=== PATIENT | male | born 1950 | race Caucasian/White ===

== ENCOUNTER → 2020-10-13 | Outpatient (CLI) | payer MEDICARE ==
[~2020-10-13] MED LIST: EZET1TAB21 PO; GLUC1CAP9 PO; IOHEXOL-350 50ML VIAL IV ONE; LISI-613 PO; METF-446 PO; MULT-264 PO; NAPR250T4 PO; PIOG30TA70 PO; TYL3 PO; UBID100C10 PO
== END | disposition home or self-care (01) ==
LOC: RAH 08:05
PROVIDERS: ATTEND Internal Medicine
DX: N13.2 Hydronephrosis with renal and ureteral calculous obstruction (principal); R10.2 Pelvic and perineal pain
CPT/HCPCS: 74177; Q9967

== ENCOUNTER 2020-11-17 07:02 | Day surgery (SDC) | payer MEDICARE ==
[2020-11-11 13:40] LABS: BASOPHILS % (AUTO) 0.9 % (0.0-5.0); HEMATOCRIT 40.5 % (42-54); LYMPHOCYTES % (AUTO) 29.3 % (21.0-51.0); MEAN CORPUSCULAR HEMOGLOBIN 29.1 pg (27.0-33.0); MEAN CORPUSCULAR HGB CONC 31.4 g/dL (32.0-36.0); MEAN CORPUSCULAR VOLUME 92.9 fL (79-99); MONOCYTES % (AUTO) 5.8 % (3.0-13.0); NEUTROPHILS % (AUTO) 58.8 % (40.0-77.0); PLATELET COUNT (AUTO) 267 K/uL (130-400); RED BLOOD CELL COUNT(AUTO) 4.36 MIL/uL (4.50-6.20); RED CELL DISTRIBUTION WIDTH 12.9 % (11.0-15.5); WHITE BLOOD COUNT (AUTO) 6.4 K/uL (4.8-10.8)
[2020-11-11 13:57] LABS: CREATININE 1.5 mg/dL (0.5-1.5); INR 1.04 (0.85-1.15); POTASSIUM 4.8 mmol/L (3.5-5.1); PROTHROMBIN TIME 11.1 SEC (9.6-11.6)
[2020-11-11 13:59] LABS: PARTIAL THROMBOPLASTIN TIME 25.2 SEC (26.3-35.5)
[2020-11-11 14:32] LABS: APPEARANCE,URINE CLEAR (CLEAR); BILIRUBIN,URINE NEGATIVE (NEGATIVE); COLOR,URINE YELLOW (YELLOW); GLUCOSE, URINE (UA) NEGATIVE (NEGATIVE); KETONES,URINE NEGATIVE (NEGATIVE); LEUKOCYTE ESTERASE ,URINE NEGATIVE (NEGATIVE); NITRATE,URINE NEGATIVE (NEGATIVE); OCCULT BLOOD,URINE TRACE-INTACT (NEGATIVE); PH,URINE 5.5 (5.0-8.0); PROTEIN,URINE NEGATIVE (NEGATIVE); UROBILINOGEN,URINE 0.2 mg/dL (0.2-1.0)
[2020-11-11 14:37] LABS: BACTERIA,URINE Few /HPF (None Seen)
[2020-11-11 14:38] LABS: MUCUS,URINE Few LPF (None Seen); SQUAMOUS EPITHELIAL CELL,UR Few /HPF (0-2)
[2020-11-15 13:14] VITALS: BP 155/83
[2020-11-17] VITALS (14 sets, daily range): BP systolic 100–136; BP diastolic 55–76
[~2020-11-17] VITALS: Ht 180.3 cm; Wt 93.9 kg
[~2020-11-17 07:02] MED LIST changes: +AEC81 PO; +EZET1TAB17 PO; -EZET1TAB21 PO; -IOHEXOL-350 50ML VIAL IV ONE; -LISI-613 PO; +LISI10TA24 PO; -METF-446 PO; -NAPR250T4 PO; -PIOG30TA70 PO; -TYL3 PO; +TYLENOL ARTHRITIS PO; -UBID100C10 PO; +VITAMIN C PO; +VITAMIN D12 PO; +ZINC50TA15 PO
[2020-11-17] MEDS ORDERED: LACTATED RINGERS 1000ML 1,000 ML IV ONE (07:21)
[2020-11-17] MEDS ORDERED: SUCCINYLCHOLINE 200MG/10ML SYR ONE (07:42)
[2020-11-17] MEDS ORDERED: LIDOCAINE PF 100MG/5ML (2%) SYRINGE 5ML ONE (07:42)
[2020-11-17] MEDS ORDERED: DEXAMETHASONE SOD PHOSPHATE 10MG/ML 1ML VIAL ONE (07:42)
[2020-11-17] MEDS ORDERED: MIDAZOLAM HCL 1 MG/ML 2ML VIAL ONE (07:43)
[2020-11-17] MEDS ORDERED: PROPOFOL 10 MG/ML 20ML VIAL IV ONE (07:43)
[2020-11-17] MEDS ORDERED: NEOSTIGMINE 5MG/5ML SYR IV ONE (07:43)
[2020-11-17] MEDS ORDERED: GLYCOPYRROLATE 1 MG/5 ML SYRINGE ONE (07:43)
[2020-11-17] MEDS ORDERED: ROCURONIUM 10MG/1ML SYR 10 MG/ML ML ONE (07:44)
[2020-11-17] MEDS ORDERED: ONDANSETRON 4MG INJ ONE (07:44)
[2020-11-17] MEDS ORDERED: FENTANYL CITRATE PF 50 MCG/1 ML 2ML VIAL ONE (07:44)
[2020-11-17] MEDS ORDERED: IOHEXOL-350 50ML VIAL IV ONE (07:57)
[2020-11-17] MEDS ORDERED: GENTAMICIN 80 MG/NS 100 ML PB 100 ML IV PRN (08:00)
[2020-11-17] MEDS: CEFTRIAXONE 1G VIAL IVP PRN ×2 (08:05→08:55)
[2020-11-17] MEDS ORDERED: EPHEDRINE SULFATE 50 MG/ML AMPULE ONE (09:29)
== END 2020-11-17 11:50 | disposition home or self-care (01) ==
LOC: DAH 07:02
PROVIDERS: ATTEND Urology
DX: N20.1 Calculus of ureter (principal); Z20.822 Contact with and (suspected) exposure to COVID-19; I10 Essential (primary) hypertension; E66.9 Obesity, unspecified; E11.9 Type 2 diabetes mellitus without complications; M19.90 Unspecified osteoarthritis, unspecified site; Z79.01 Long term (current) use of anticoagulants; Z88.2 Allergy status to sulfonamides
CPT/HCPCS: 36415 ×2; 52356; 71045; 74018 ×2; 80048; 81001; 82360; 85025; 85610; 85730; 87088; 93005; A4215; A4221; A4222; A4223; A4600; A4663; A6260; C9803; J0330; J0696; J1100; J1580; J2001; J2250; J2405; J2704; J2710; J3010; J3490 ×2; J7120; U0003; C1758; C1769; C2617; Q9967

== ENCOUNTER → 2021-01-19 | Outpatient (CLI) | payer MEDICARE | END | disposition home or self-care (01) | LOC: RAH 09:01 | PROVIDERS: ATTEND Internal Medicine Cardiovascular Disease | DX: R42 Dizziness and giddiness (principal); I95.1 Orthostatic hypotension | CPT/HCPCS: 93306; 93356; 93880; 96374; C8929 ==

== ENCOUNTER 2025-03-26 19:18 | Emergency (ER) | payer MEDICARE ==
[~2025-03-26] VITALS: Ht 180.3 cm; Wt 77.1 kg
[~2025-03-26 19:18] MED LIST changes: +EZET-80 PO; -EZET1TAB17 PO
--- NOTE | 2025-03-26 19:59 | EKG ---
[facility] Test Date: 2025-03-26 Test Time: 19:56:41 Pat Name: JACY HULL Department: ED Room: Gender: M Physiological Chemist: [id number] : 1950 Requested By: BRIDGETTE LORA Order Number: [id number] Reading MD: Josr Hernandez Measurements Intervals [place] Rate: 69 P: 60 IA: 174 QRS: 2 QRSD: 105 T: 28 QT: 392 QTc: 419 Interpretive Statements Sinus rhythm Probable anteroseptal infarct, old Compared to ECG 11/11/2020 13:15:45 Myocardial infarct finding now present Electronically Signed On 03-29-2025 22:14:00 CDT by Josr Hernandez Please click the below link to view image of tracing.
[2025-03-26 21:06] LABS: BASOPHILS # (AUTO) 0.04 K/uL (0.00-0.20); BASOPHILS % (AUTO) 0.7 % (0.0-5.0); EOSINOPHILS # (AUTO) 0.11 K/uL (0.00-0.70); IMMATURE GRANULOCYTE ABSOLUTE 0.01 K/uL (0-1); LYMPHOCYTES # (AUTO) 1.4 K/uL (1.0-4.8); LYMPHOCYTES % (AUTO) 25.8 % (21.0-51.0); MEAN CORPUSCULAR HEMOGLOBIN 31.5 pg (27.0-33.0); MEAN CORPUSCULAR HGB CONC 33.2 g/dL (32.0-36.0); MEAN CORPUSCULAR VOLUME 94.6 fL (79-99); MONOCYTES # (AUTO) 0.3 K/uL (0.1-1.0); MONOCYTES % (AUTO) 4.8 % (3.0-13.0); NEUTROPHILS # (AUTO) 3.7 K/uL (1.8-7.7); NEUTROPHILS % (AUTO) 66.5 % (40.0-77.0); PLATELET COUNT (AUTO) 213 K/uL (130-400); RED BLOOD CELL COUNT(AUTO) 3.91 MIL/uL (4.50-6.20); RED CELL DISTRIBUTION WIDTH 13.3 % (11.0-15.5); WHITE BLOOD COUNT (AUTO) 5.6 K/uL (4.8-10.8)
[2025-03-26 21:30] LABS: POTASSIUM 3.9 mmol/L (3.5-5.1)
[2025-03-26] MEDS: LACTATED RINGERS 1000ML 1,000 ML IV ONE (22:06)
--- NOTE | 2025-03-26 22:32 | HMCIMG ---
CT HEAD/BRAIN W/O CONTRAST HISTORY: Altered consciousness COMPARISON: None TECHNIQUE: Multiple sequential axial images of the head were obtained from the base of the skull through vertex. Patient was not given contrast through intravenous route. FINDINGS: The ventricles and extraventricular CSF spaces are dilated consistent with cerebral atrophy. Nonspecific white matter changes seen. There are bilateral basal ganglia calcification. There is no midline shift, mass effect or herniation. No acute intracranial bleed is seen. Visualized portion of the paranasal sinuses are grossly within normal limits. IMPRESSION: 1. No acute intracranial bleed is seen. 2. Atrophy with white matter changes. CT was performed with one or more following dose reduction techniques: automated exposure control, adjustment of the mA and kv according to patient's size, or use of a iterative reconstruction technique.
--- NOTE | 2025-03-26 22:32 | HMCIMG ---
CHEST 1VW HISTORY: Weakness COMPARISON: 11/11/2020 FINDINGS: A frontal projection of the chest was obtained. No acute pulmonary infiltrates is seen. The heart is borderline enlarged. Prominent interstitial markings are seen. Degenerative changes are seen. IMPRESSION: 1. No acute pulmonary infiltrate is seen.
[2025-03-26 23:23] LABS: APPEARANCE,URINE CLEAR (CLEAR); BILIRUBIN,URINE NEGATIVE (NEGATIVE); COLOR,URINE LIGHT-YELLOW (YELLOW); GLUCOSE, URINE (UA) NEGATIVE (NEGATIVE); KETONES,URINE NEGATIVE (NEGATIVE); LEUKOCYTE ESTERASE ,URINE NEGATIVE Leu/uL (NEGATIVE); NITRATE,URINE NEGATIVE (NEGATIVE); OCCULT BLOOD,URINE NEGATIVE (NEGATIVE); PH,URINE 6.5 (5.0-8.0); PROTEIN,URINE NEGATIVE (NEGATIVE); UROBILINOGEN,URINE 0.2 mg/dL (0.2-1.0)
[2025-03-26 23:25] LABS: ADD UA MICROSCOPIC NO
--- NOTE | 2025-03-26 23:45 | ERN ---
General Chief Complaint: Other Problems Stated Complaint: MULTIPLE COMPLAINTS Time Seen by MD: 19:20 History of Present Illness Initial Comments 74-year-old male brought in by from home for increased forgetfulness, increased urinary incontinence, and increasing disability. According to the family, the patient has been diagnosed with Parkinson's. They report that over the last few months symptoms appear to be increasing rapidly. Patient is still alert and oriented and able answer questions, and he is able to move slowly. He denies any recent falls. According to the patient in the family he has been much weaker than usual, he is not able to walk as far as used to, and he is having more frequent incontinence. They are here to evaluated there are any other causes of the symptoms. Allergies: Coded Allergies: Sulfa (Sulfonamide Antibiotics) (Verified Allergy, Unknown, 12/06/16) Home Meds Reported Medications Aspirin (ASPIRIN 81 MG ECTAB) 81 Mg Ectab, 81 MG PO DAILY, TAB.EC 11/15/20 [Vitamin C] No Conflict Check, 50 MG PO DAILY 11/15/20 Zinc Gluconate (Zinc) 50 Mg Tablet, 50 MG PO HS, TAB 11/15/20 [Vitamin D-12] No Conflict Check, 1000 UNITS PO DAILY 11/15/20 [Tylenol Arthritis] No Conflict Check, 650 MG PO AD PRN for PAIN LEVEL 5 TO 10 11/15/20 Lisinopril (Lisinopril) 10 Mg Tablet, 10 MG PO DAILY, TAB 11/15/20 Ezetimibe/Simvastatin (Vytorin 10-20 mg Tablet) 1 Each Tablet, 1 EACH PO HS, TAB 11/15/20 Multivitamin (Multiple Vitamins) 1 Each Tablet, 1 EACH PO AM, TAB 12/06/16 Gluc [place]/MSM/Magnesium/Vit C (Glucosamine Complex-MSM Cap) 1 Each Capsule, 1 EACH PO AM, CAP 12/06/16 Past Medical History Past Medical History: Diabetes-Type II, Other Medical History Other: PARKINSON DEMENTIA Past Surgical History: None ROS Dictation CONSTITUTIONAL: No chills, no fever, no weakness, no diaphoresis, no malaise. HEAD/FACE: No signs of trauma. EENT: No eye pain, no blurred vision, no tearing, no double vision, no ear pain, no ear discharge, no nose pain, no nasal congestion, no throat pain, no throat swelling, no mouth pain. RESPIRATORY: No cough, no orthopnea, no SOB, no stridor, no wheezing. CARDIOVASCULAR: No chest pain, no edema, no palpitations, no syncope. GASTROINTESTINAL/ABDOMINAL: No abdominal pain, no constipation, no diarrhea, no nausea, no vomiting. GENITOURINARY: No abnormal discharge, no dysuria, no frequent urination, no hematuria. No complaints of pain in the genitals. MUSCULOSKELETAL: No back pain, no gout, no joint pain, no joint swelling, no muscle pain, no muscle stiffness, no neck pain. INTEGUMENTARY: No change in color, no change in hair/nails, no dryness, no lesion, no lumps, no rash. NEUROLOGICAL/PSYCH: No anxiety, not depressed, no emotional problem, no headache, no numbness, no pre-existing deficit, no history of seizures, no tremors, no weakness. HEMATOLOGIC/LYMPHATIC: Not anemic, no history of blood clots, no apparent bleeding, no bruising, glands not swollen. All Systems Negative, Except as Noted. Physical Exam Physical Exam Dictation VITAL SIGNS: Reviewed. GENERAL APPEARANCE: Alert, oriented x3, no acute distress HEAD AND FACE: Non-traumatic. EYES: PERRL, pink conjunctivas, eyelid no trauma, anterior chamber clear. EARS: Pinnas intact and no signs of trauma or erythema. Ear canals clear and no discharge. TMs no erythema. NOSE: No discharge, no bleeding. OROPHARYNX: Mouth normal, teeth no caries, tongue pink. Pharynx clear, no erythema. Tonsils no exudates, no abscesses noted. Mucous membrane moist. NECK: Supple, non-tender, no thyromegaly, no masses, no JVD, no bruits. BREAST: Deferred. CHEST: No tenderness, no crepitus, no paradoxical movement, no retractions. LUNGS: Clear, well-ventilated, symmetric, no rales, no wheezing, no rhonchi, no stridor, good breath sounds bilaterally. HEART: Regular rate, regular rhythm, no murmur, no gallops. VASCULAR: No peripheral edema. ABDOMEN: Soft, positive bowel sounds, nondistended, no guarding, nontender, no rebound, no masses no hepatomegaly, no splenomegaly, no Reyes's sign, no hernias. RECTAL: Deferred. GENITAL: Deferred. NEUROLOGICAL: Normal speech, gross motor function intact, gross sensory function intact. MUSCULOSKELETAL: Neck nontender, full range of motion, back nontender, full range of motion. EXTREMITIES: Nontender, full range of motion. SKIN: Color pink, dry, no turgor, no rash, no lacerations, no abrasions, no contusions. LYMPHATICS: Deferred. Results Laboratory and Microbiology Lab and Micro Result Laboratory Tests Test 03/26/25 20:53 03/26/25 23:07 White Blood Count 5.6 K/uL (4.8-10.8) Red Blood Count 3.91 MIL/uL (4.50-6.20) L Hemoglobin 12.3 g/dL (14.0-18.0) L Hematocrit 37.0 % (42-54) L Mean Corpuscular Volume 94.6 fL (79-99) Mean Corpuscular Hemoglobin 31.5 pg (27.0-33.0) Mean Corpuscular Hemoglobin Concent 33.2 g/dL (32.0-36.0) Red Cell Distribution Width 13.3 % (11.0-15.5) Platelet Count 213 K/uL (130-400) Mean Platelet Volume 8.6 fL (7.5-10.5) Immature Granulocyte % (Auto) 0.2 % (0-1) Neutrophils (%) (Auto) 66.5 % (40.0-77.0) Lymphocytes (%) (Auto) 25.8 % (21.0-51.0) Monocytes (%) (Auto) 4.8 % (3.0-13.0) Eosinophils (%) (Auto) 2.0 % (0.0-8.0) Basophils (%) (Auto) 0.7 % (0.0-5.0) Neutrophils # (Auto) 3.7 K/uL (1.8-7.7) Lymphocytes # (Auto) 1.4 K/uL (1.0-4.8) Monocytes # (Auto) 0.3 K/uL (0.1-1.0) Eosinophils # (Auto) 0.11 K/uL (0.00-0.70) Basophils # (Auto) 0.04 K/uL (0.00-0.20) Absolute Immature Granulocyte (auto 0.01 K/uL (0-1) Nucleated Red Blood Cells 0.0 % (0.0-0.19) Sodium Level 145 mmol/L (136-145) Potassium Level 3.9 mmol/L (3.5-5.1) Chloride Level 107 mmol/L (101-111) Carbon Dioxide Level 31 mmol/L (21-32) Blood Urea Nitrogen 24 mg/dL (7-18) H Creatinine 1.0 mg/dL (0.5-1.3) Glomerular Filtration Rate Calc 78 mL/min (>90) Random Glucose 100 mg/dL (70-105) Total Calcium 9.2 mg/dL (8.5-10.1) Total Creatine Kinase 98 U/L (21-232) Troponin I High Sensitivity 6.6 ng/L (4-75) B-Type Natriuretic Peptide 73 pg/mL (0-100) Urine Color LIGHT-YELLOW (YELLOW) Urine Appearance CLEAR (CLEAR) Urine pH 6.5 (5.0-8.0) Urine Specific [place] 1.020 (1.001-1.031) Urine Protein NEGATIVE mg/dL (NEGATIVE) Urine Glucose (UA) NEGATIVE mg/dL (NEGATIVE) Urine Ketones NEGATIVE mg/dL (NEGATIVE) Urine Occult Blood NEGATIVE (NEGATIVE) Urine Nitrate NEGATIVE (NEGATIVE) Urine Bilirubin NEGATIVE mg/dL (NEGATIVE) Urine Urobilinogen 0.2 mg/dL (0.2-1.0) Urine Leukocyte Esterase NEGATIVE Yas/uL MDM CC: Increasing confusion, increasing incontinence, decreased mobility Historian: Patient Comorbidities including advanced age, Parkinson's dementia No limitations by social determinants Differential diagnosis includes worsening dementia, UTI, electrolyte abnormality, infection, other Vital signs stable Clinical exam is unremarkable CT head without contrast independently interpreted by me shows no acute abnormalities, chronic changes Chest x-ray independently interpreted by me shows no focal infiltrates cardiomegaly or pleural effusions The labs including CBC, metabolic panel, troponin, CK, urinalysis are all unremarkable. Patient received IV fluids in the ER I did consider an admission for the patient. I had a discussion for an observation admission for rehydration and physical therapy evaluation, but the family reports they prefer to go home at this time. They are currently being worked up as an outpatient with a neurologist for the patient's Parkinson'ssymptoms. I suspect that the patient's dementia is getting worse which was prompting these symptoms. I do not see any life threats at this time. We will DC. ED Course Orders Procedure Category Date Status Time Cardiac Panel LAB 03/26/25 Complete 19:48 Cbc With Differential LAB 03/26/25 Complete 19:48 Basic Metabolic Panel LAB 03/26/25 Complete 19:48 Urinalysis Profile LAB 03/26/25 Complete 19:48 12 Lead Ekg Tracing- EKG 03/26/25 Complete Technical 19:48 Ct Head/Brain W/O CT 03/26/25 Resulted Contrast 21:41 Chest 1vw RAD 03/26/25 Resulted 21:44 B-Type Natriuretic LAB 03/26/25 Complete Peptide 21:44 Lactated Ringers PHA 03/26/25 Complete 1000ml (Lactated 22:00 Current Medications Medications (Trade) Dose Ordered Sig/Cheryle Route PRN Reason Start Time Stop Time Status Last Admin Dose Admin Lactated Ringer's 1,000 ml @ 0 mls/hr ONCE ONCE IV 03/26/25 22:00 03/26/25 22:01 DC 03/26/25 22:06 Vital Signs Date Time Temp Pulse Resp B/P (MAP) Pulse Ox O2 Delivery O2 Flow Rate FiO2 03/26/25 23:50 98.4 61 16 147/71 97 Room Air* 0 21 03/26/25 23:00 98.4 61 16 150/77 99 Room Air* 0 21 03/26/25 21:59 98.4 61 16 152/80 99 Room Air* 0 21 03/26/25 19:44 98.4 70 16 123/69 98 Room Air* 0 21 DX & DISP Disposition: Discharge Departure Impression: Primary Impression: Parkinson disease with dyskinesia Condition: Stable Additional Instructions: Your symptoms are consistent with Parkinson's dyskinesia and dementia. Your vital signs are stable. Your EKG is normal. Your chest x-ray is normal. The blood work (CBC, BMP, troponin, CK, urinalysis) is normal. Please follow up with your outpatient neurologist. Return to the ED as needed. Referrals: SELF,REFERRAL (PCP) BRIDGETTE LORA DO March 26, 2025 23:45
[2025-03-26 23:50] VITALS: BP 147/71; PULSE 61; RESP 16; TEMP 98.4; O2SAT 97
== END 2025-03-27 00:01 | disposition home or self-care (01) ==
LOC: EDH 19:18
DX: G20.B1 Parkinson's disease with dyskinesia, without mention of fluctuations (principal); E11.9 Type 2 diabetes mellitus without complications; Z79.82 Long term (current) use of aspirin; Z79.899 Other long term (current) drug therapy; Z88.2 Allergy status to sulfonamides
CPT/HCPCS: 99284; 70450; 71045; 82550; 84484; 80048; 83880; 85025; 81003; 36415; 93005; J7120